=== PATIENT | female | born 1965 | race Caucasian/White ===

== ENCOUNTER 2018-01-10 09:31 | Day surgery (SDC) | END 2018-01-10 14:32 | disposition home or self-care (01) ==

== ENCOUNTER 2018-03-21 21:17 | Inpatient (IN) | END 2018-03-25 20:20 | disposition home or self-care (01) | DRG 493 ==

== ENCOUNTER 2018-12-30 08:22 | Observation (INO) | payer OTHER ==
[~2018-12-30] VITALS: Ht 175.3 cm; Wt 99.3 kg
[2018-12-30] VITALS (53 sets, daily range): BP systolic 100–166; BP diastolic 53–101; PULSE 52–90; RESP 10–48; Ht 175.3 cm; Wt 99.3 kg
--- NOTE | 2018-12-30 07:42 | HPN ---
Date/Time of Note Date/Time of Note DATE: 12/30/18 TIME: 07:41 Interval H&P Admission Note Pt. seen H&P reviewed: No system changes GIGI HUBBARD MD Dec 30, 2018 07:41
[~2018-12-30 08:22] MED LIST: AMLO-147 PO; ASPI-817 PO; ASPI-831 PO; ATOR10TA65 PO; GLIP10TA14 PO; IBUP-1542 ORAL; LEVO500T48 PO; LISI10TA2 ORAL; METF-849 ORAL; MONT10TA24 PO; OMEP40CA6 PO; RANI300T ORAL
--- NOTE | 2018-12-30 10:49 | PREAC ---
Date/Time of Note Date/Time of Note DATE: 12/30/18 TIME: 10:47 Anesthesia Eval and Record Evaluation Time Pre-Procedure Interview DATE: 12/30/18 TIME: 10:47 Age 53 Sex female NPO: 8 hrs Preoperative diagnosis hardware ankle Planned procedure removal of hardware Past Medical History Past Medical History: Includes Cardio: HTN Endo: Diabetes GI: GERD, Obesity Surgery & Anesthesia Issues No known issue Meds Anticoagulation: No Beta Kianna within 24 hr: No Reason Beta Kianna not given: Pt. not on B-Kianna Reported Medications Lisinopril* (Lisinopril*) 10 Mg Tablet, 1 TAB ORAL DAILY 12/30/18 Metformin* (Glucophage*) 500 Mg Tab, 1 TAB ORAL BID 12/30/18 Ranitidine Hcl* (Ranitidine Hcl*) 300 Mg Tablet, 1 TAB ORAL QHS 12/30/18 Omeprazole* (Omeprazole*) 40 Mg Capsule.dr, 40 MG PO DAILY, #30 CAP 12/30/18 Ibuprofen* (Ibuprofen*) 600 Mg Tablet, 1 TAB ORAL Q8H PRN for PAIN LEVEL 4-6 12/30/18 Montelukast Sodium* (Montelukast Sodium*) 10 Mg Tablet, 10 MG PO QHS, #30 TAB 03/21/18 Amlodipine Besylate* (Amlodipine Besylate*) 10 Mg Tablet, 10 MG PO DAILY, #30 TAB 03/21/18 Discontinued Reported Medications Glipizide* (Glipizide*) 10 Mg Tablet, 10 MG PO TID, TAB 03/21/18 Omeprazole* (Omeprazole*) 40 Mg Capsule.dr, 40 MG PO DAILY, #30 CAP 03/21/18 Discontinued Scripts Aspirin (Aspirin) 81 Mg Chew, 81 MG PO BID, #60 TAB Prov:MILLER,TOÑA V. CAKE STRIPPER 03/25/18 Atorvastatin (Atorvastatin) 10 Mg Tablet, 10 MG PO HS, #30 TAB Prov:MILLER,TOÑA V. CAKE STRIPPER 03/25/18 Meds reviewed: Yes Allergies Coded Allergies: cefepime (Verified Allergy, Intermediate, HIVES, RASHES, 03/21/18) vancomycin (Verified Allergy, Intermediate, HIVES, RASHES, ITCHINESS, 03/21/18) morphine (Verified Allergy, Unknown, rash, 03/21/18) Allergies Reviewed: Yes Labs/Studies Labs Reviewed: Reviewed by anesthesiologist test: N/A Pre-procedure Exam Last vitals Vital Signs Date Temp Pulse Resp B/P (MAP) Pulse Ox O2 O2 Flow FiO2 Time Delivery Rate 12/30/18 97.7 70 16 155/70 98 Room Air 09:33 (98) Airway: Adequate mouth opening, Adequate thyromental dist Mallampati: Mallampati IV Teeth: Normal Lung: Normal Heart: Normal ASA Physical Status ASA physical status: 2 Emergency: None Pre-operative Attestations Prior to commencing anesthesia and surgery, the patient was re-evaluated, there was verification of: *The patient's identity *The results of appropriate recent lab work and preoperative vital signs *The above evaluation not changing prior to induction *Anesthetic plan, risk benefits, alternative and complications discussed with patient/family; questions answered; patient/family understands, accepts and wishes to proceed. JORDAN HELLER DO Dec 30, 2018 10:49
[2018-12-30] MEDS ORDERED: OXYCODONE/ACETAMINOPHEN (5/325) TAB PO PRN ×2 (11:00)
[2018-12-30] MEDS ORDERED: HYDROmorphONE 1 MG/5 ML IV SYRINGE IV PRN ×3 (11:00)
[2018-12-30] MEDS ORDERED: hydrALAzine 20 MG INJ IV PRN (11:00)
[2018-12-30] MEDS ORDERED: ONDANSETRON 4 MG INJ IV PRN ×2 (11:00→17:00)
[2018-12-30] MEDS ORDERED: LABETALOL HCL 20MG INJ IV PRN (11:00)
[2018-12-30] MEDS ORDERED: POLYMYXIN/BACITRACIN 1L IRRIG ONE (11:07)
[2018-12-30] MEDS ORDERED: BACITRACIN/POLYMYXIN 28.35 GM OINT TOP ONE (11:07)
[2018-12-30] MEDS ORDERED: PROPOFOL 200 MG INJ ONE (11:25)
[2018-12-30] MEDS ORDERED: LIDOCAINE 2% (SDV) 5 ML INJ ONE (11:25)
[2018-12-30] MEDS ORDERED: MIDAZOLAM 1 MG/ML 2 ML INJ ONE ×2 (11:25→12:05)
[2018-12-30] MEDS ORDERED: ROCURONIUM 50 MG INJ ONE (11:25)
[2018-12-30] MEDS ORDERED: HYDROmorphONE 2 MG/ML SYG ONE (11:27)
[2018-12-30] MEDS ORDERED: morphine 2 MG INJ IV PRN (11:30)
[2018-12-30] MEDS ORDERED: CEFAZOLIN 1 GM INJ ONE (11:31)
[2018-12-30] MEDS ORDERED: ONDANSETRON 4 MG INJ ONE (11:31)
[2018-12-30] MEDS ORDERED: CLINDAMYCIN 600 MG/D5W (PMX) 50 ML IVPB ONE (11:32)
[2018-12-30] MEDS ORDERED: ROPIVACAINE 0.5 % 30 ML VIAL ONE (11:37)
[2018-12-30] MEDS ORDERED: SUGAMMADEX SODIUM 200 MG/2 ML VIAL IV ONE (12:15)
--- NOTE | 2018-12-30 12:35 | PAC ---
Date/Time of Note Date/Time of Note DATE: 12/30/18 TIME: 12:34 Post-Anesthesia Notes Post-Anesthesia Note Last documented vital signs Vital Signs Date Temp Pulse Resp B/P (MAP) Pulse Ox O2 O2 Flow FiO2 Time Delivery Rate 12/30/18 98 94 22 140/65 95 Room Air 1235 Activity: WNL Respiratory function: WNL Cardiovascular function: WNL Mental status: Baseline Pain reasonably controlled: Yes Hydration appropriate: Yes Nausea/Vomiting absent: Yes JORDAN HELLER DO Dec 30, 2018 12:35
--- NOTE | 2018-12-30 12:45 | OPR ---
Date/Time of Note Date/Time of Note DATE: 12/30/18 TIME: 12:40 Operative Report Procedure Date: Dec 30, 2018 Preoperative Diagnosis Left ankle painful hardware Postoperative Diagnosis Left ankle painful hardware Left ankle deltoid rupture Operation/Procedure Performed Left ankle painful hardware removal, deep Left ankle superficial deltoid repair Surgeon Jong Hubbard MD Automatic Serging Machine Operator Jl Felix MD Anesthesia Type: general, other (Saphenous block) Anesthesiologist: JORDAN HELLER DO Tourniquet Time: 24 minutes at 250 mmHg Estimated Blood Loss: minimal Transfusion none Specimen None Grafts/Implants none Complications none Pt Condition Post Procedure: stable Disposition: PACU Indications Patient is a 53-year-old female with ongoing pain over her medial ankle at the site of her hardware. Given her ongoing pain patient indicated for surgical removal of her deep hardware plates and screws. Risk Note: Patient was explained the risks and benefits of surgery and the patient's [place] language including not limited to infection, bleeding, injury to blood vessels, nerves, ligaments or tendons. Risks of anesthesia, deep vein thrombosis and need for reduce future surgery. Patient acknowledged these risk by signing the surgical consent form. Procedure Description Automatic Serging Machine Operator surgeon: An assistant branch manager orthopedic surgeon was needed for this case to assist with positioning of the limb during repair of the injury. Without a qualified orthopedic geriatric nurse assistant in this case the case would be significantly more complex and longer. The patient was met in the preoperative holding area, marked with the correct operative extremity confirmed with both patient and consent. The patient was then brought back in the operative theater, placed supine on operative table, given preoperative antibiotics and preoperative regional block anesthesia. The patient had all bony prominences well padded with a nonsterile tourniquet placed on the operative extremity. The patient was then prepped and draped in the normal sterile fashion. All parties in the room did a timeout and everyone agreed it was the correct patient, and extremity and procedure. Attention was initially turned to the medial malleolus and an incision was made over the medial malleolus with care taken to avoid injury to the neurovascular structures. The hardware was identified and removed without any complication. At the time of the hardware removal a tear in the superficial deltoid was identified irrigated thoroughly and repaired with a 0 Vicryl. All wounds were thoroughly irrigated and closed with initially 2-0 Vicryl, followed by 3-0 Monocryl followed by 4-0 nylon in a vertical mattress fashion. All wounds were dressed with Xeroform, antibiotic ointment, 4 x 4s, 5 ABDs were placed and the patient was placed in a well-padded short leg splint in the neutral position. Tourniquet had been brought down prior to this and hemostasis had been achieved prior to the wound closure. The wounds were irrigated thoroughly prior to closure as well. All sponge and needle counts were correct. Toes were warm and well-perfused in the PACU. JONG HUBBARD MD Dec 30, 2018 12:45
[2018-12-30] MEDS: KETOROLAC 30 MG INJ IV SCH (12:55)
[2018-12-30] MEDS ORDERED: LORAZEPAM 1 MG TAB PO ONE (13:30)
--- NOTE | 2018-12-30 16:42 | HP ---
Date/Time of Note Date/Time of Note DATE: 12/30/18 TIME: 16:42 Assessment/Plan VTE Prophylaxis Pharmacological prophylaxis: other (Aspirin as per orthopedic surgery.) Lines/Catheters IV [facility]ter [facility]from [facility]): Peripheral IV Assessment/Plan Hospital Course 52-year-old female with comorbidities including hypertension, diabetes mellitus type 2, dyslipidemia, and obesity, who had an elective left ankle pain hardware removal along with left ankle superficial deltoid repair with episodes of hypoxia in the postanesthesia care unit, who will be admitted to inpatient setting for further treatment and evaluation. 1. Transient hypoxic episodes. Etiology could be multifactorial including hypoinflation and anxiety. Continue supplemental oxygen as needed. Continue to monitor oxygen levels closely. Obtain a chest x-ray. 2. Left ankle painful hardware. Status post surgical removal with superficial deltoid repair. Continue pain control. Weightbearing as per orthopedic surgery. Anticoagulation as per orthopedic surgery. 3. Hypertension. Resume antihypertensives. 4. Diabetes mellitus type 2. Hold oral antidiabetic agents. Start sliding scale insulin. 5. Dyslipidemia. Obtain a fasting lipid panel level. Plan: The patient will be admitted to inpatient medical surgical floor. The patient will be started on a carbohydrate controlled diet. The patient will be started on DVT prophylaxis . The patient will remain a full code. Activities will be as per orthopedic surgery. The rest of the patient's management will be based on the clinical course, inputs from consultants, and the results of diagnostic studies. Based on the patient's clinical presentation, she most probably requires at least 1 midnight's stay for further management and evaluation of her clinical presentation. The patient was seen in collaboration with Dr. White. Results 24hrs Laboratory Tests Test 12/30/18 09:13 12/30/18 14:11 Bedside Glucose 119 129 HPI/ROS Admit Date/Time Admit Date/Time Hx of Present Illness This is a 53-year-old female with a past medical history of hypertension, diabetes mellitus type 2, dyslipidemia, and obesity. The patient was brought electively to [facility] for removal of hardware from her left medial ankle because of ongoing pain. The patient underwent a left ankle hardware removal, and left ankle superficial deltoid repair on 12/30/2018 without any complications. In the PACU, the patient started complaining of some dyspnea and chest discomfort. The patient was noticed to have episodes of hypoxia (alth ough the patient was not taking deep breaths during the hypoxic episodes). The patient had similar complaints during her PACU stay after prior surgery in February 2018 on her left ankle and as a result, the patient did stay in the hospital for 4 days. At that time, the patient was evaluated by cardiology and was ruled out for any underlying acute coronary syndrome. The patient was complaining of dyspnea. She was complaining of nonspecific chest discomfort. She denied any anxiety, although a single dose of Ativan helped her with improving the oxygen saturation levels. The patient's twelve-lead EKG was showing normal sinus rhythm. After discussing with the surgeon, a clinical decision was made to observe the patient overnight. ROS Constitutional: no complaints Eyes: no complaints ENT: no complaints Respiratory: shortness of breath Cardiovascular: chest pain Gastrointestinal: no complaints Genitourinary: no complaints Musculoskeletal: no complaints Skin: no complaints Neurologic: no complaints Endocrine: no complaints Lymphatic: no complaints Psychological: anxiety Immunologic: no complaints PMH/Family/Social Past Medical History 1. Hypertension. 2. Diabetes mellitus type 2. 3. Dyslipidemia. 4. Obesity. Medications Current Medications Morphine Sulfate (morphine) 2 mg Q1H PRN IV pain; Start 12/30/18 at 11:30 Ketorolac Tromethamine (Toradol) 30 mg ONCE IV Last administered on 12/30/18at 12:55; Admin Dose 30 MG; Start 12/30/18 at 11:30; Stop 01/02/19 at 11:29 Coded Allergies: cefepime (Verified Allergy, Intermediate, HIVES, RASHES, 03/21/18) vancomycin (Verified Allergy, Intermediate, HIVES, RASHES, ITCHINESS, 03/21/18) morphine (Verified Allergy, Unknown, rash, 03/21/18) Past Surgical History 1. Appendectomy. 2. Left ankle surgery. 3. Ovarian cyst removal. Past Surgical Hx: other Family History Significant Family History: hypertension Social History The patient lives at home with her family. Alcohol Use: none Smoking Status: Never smoker Drug Use: none Exam/Review of Systems Vital Signs Vitals Vital Signs Date Temp Pulse Resp B/P (MAP) Pulse Ox O2 O2 Flow FiO2 Time Delivery Rate 12/30/18 58 24 128/67 94 Nasal 15:18 (87) Cannula 12/30/18 3.0 14:22 12/30/18 98.0 14:20 Exam Exam General: Obese, 53 year-old female lying in bed in no apparent distress. HEENT: Normocephalic, atraumatic. Eyes: Anicteric sclerae, conjunctivae clear. ENT: Nasal septum midline, oral mucosa is dry. Neck supple, no JVD noticed. Respiratory: Bilaterally clear breath sounds. No use of accessory muscles of respiration. No adventitious breath sounds. Cardiovascular: S1, S2 heard. Regular rate and rhythm. Abdomen: Soft, nontender, and nondistended. Bowel sounds positive in all 4 quadrants. Genitourinary: Deferred. Extremities: No cyanosis, no clubbing, no edema. Left foot surgical dressing. Neurologic: Cranial nerves II through XII grossly intact. The patient is awake, alert, and oriented. Skin: Normal skin turgor. No skin rashes. ESTRELLA FLETCHER NP Dec 30, 2018 16:42
[2018-12-30] MEDS ORDERED: GLUCAGON 1 MG INJ IM PRN (17:00)
[2018-12-30] MEDS ORDERED: DEXTROSE 50% 50 ML SYRINGE IV PRN ×2 (17:00)
[2018-12-30] MEDS ORDERED: GLUCOSE GEL 15 GRAM TUBE BUCCAL PRN (17:00)
[2018-12-30] MEDS ORDERED: HYDROCODONE/APAP (5/325) TAB PO PRN (17:00)
[2018-12-30] MEDS ORDERED: GLUCOSE GEL 15 GRAM TUBE PO PRN ×2 (17:00)
[2018-12-30] MEDS ORDERED: NACL 0.9% 3 ML SYG IV SCH (17:00)
[2018-12-30] MEDS ORDERED: ACETAMINOPHEN 325 MG TAB PO PRN (17:00)
[2018-12-30] MEDS: INSULIN ASPART [NOVOLOG] 3 ML PEN SC SCH (21:00)
[2018-12-30] MEDS ORDERED: MONTELUKAST 10 MG TAB PO SCH (21:00)
[2018-12-31 00:05] VITALS: BP 114/58; PULSE 61; RESP 18
[2018-12-31 03:57] VITALS: BP 125/64; PULSE 76; RESP 18
[2018-12-31 07:50] VITALS: BP 147/63; PULSE 58; RESP 20
[2018-12-31] MEDS: INSULIN ASPART [NOVOLOG] 3 ML PEN SC SCH ×2 (07:50→11:40)
[2018-12-31] MEDS ORDERED: ASPIRIN (EC) 81 MG TAB PO SCH (09:00)
[2018-12-31] MEDS ORDERED: AMLODIPINE 10 MG TAB PO SCH (09:00)
[2018-12-31] MEDS: KETOROLAC 30 MG INJ IV SCH (11:30)
--- NOTE | 2018-12-31 15:04 | RADRPT ---
Vent Rate: 64 bpm RR Interval: 936 msec SD Interval: 194 msec QRS Duration: 95 msec QT Interval: 438 msec QTC Interval: 453 msec P-R-T [place]: 39 - 57 - -29 degrees Sinus rhythm...normal P axis, V-rate 50- 99 Low voltage, precordial leads...precordial leads <1.0mV Nonspecific T abnormalities, diffuse leads...T <-0.10mV, ant/lat/inf Electronically Signed By: Leoncio Loaiza
--- NOTE | 2018-12-31 15:30 | DS ---
Date/Time of Note Date/Time of Note DATE: 12/31/18 TIME: 15:28 Discharge Summary Admission/Discharge Info Admit Date/Time Dec 30, 2018 at 16:36 Discharge Date/Time Dec 31, 2018 at 13:43 Discharge Diagnosis 52-year-old female with comorbidities including hypertension, diabetes mellitus type 2, dyslipidemia, and obesity, who had an elective left ankle pain hardware removal along with left ankle superficial deltoid repair with episodes of hypoxia in the postanesthesia care unit, who will be admitted to inpatient [facility] for further treatment and evaluation. 1. Transient hypoxic episodes. Etiology could be multifactorial including hypoinflation and anxiety. resolved 2. Left ankle painful hardware. Status post surgical removal with superficial deltoid repair. Continue pain control. Weightbearing as per orthopedic surgery. Anticoagulation as per orthopedic surgery. 3. Hypertension. Resumed antihypertensives. 4. Diabetes mellitus type 2. resume home meds 5. Dyslipidemia. Patient Condition: Stable Hospital Course 50-year-old female who was admitted for observation after she underwent orthopedic surgery for hardware removal due to left ankle pain with superficial deltoid repair. He does have a history of hypertension and dyslipidemia and diabetes mellitus and suffered transient hypoxic episodes postoperatively. She was admitted and observed overnight and she did very well her chest x-ray showed some airspace opacification as well as some atelectasis but patient had no clinical signs of pneumonia. As of today she is doing so much better she is stable on room air she will be discharged in stable condition to continue routine follow-up with the orthopedic surgeon and her primary care doctor as outpatient. . Home Meds Reported Medications Lisinopril* (Lisinopril*) 10 Mg Tablet, 1 TAB ORAL DAILY 12/30/18 Metformin* (Glucophage*) 500 Mg Tab, 1 TAB ORAL BID 12/30/18 Ranitidine Hcl* (Ranitidine Hcl*) 300 Mg Tablet, 1 TAB ORAL QHS 12/30/18 Omeprazole* (Omeprazole*) 40 Mg Capsule.dr, 40 MG PO DAILY, #30 CAP 12/30/18 Ibuprofen* (Ibuprofen*) 600 Mg Tablet, 1 TAB ORAL Q8H PRN for PAIN LEVEL 4-6 12/30/18 Montelukast Sodium* (Montelukast Sodium*) 10 Mg Tablet, 10 MG PO QHS, #30 TAB 03/21/18 Amlodipine Besylate* (Amlodipine Besylate*) 10 Mg Tablet, 10 MG PO DAILY, #30 TAB 03/21/18 Discontinued Reported Medications Glipizide* (Glipizide*) 10 Mg Tablet, 10 MG PO TID, TAB 03/21/18 Omeprazole* (Omeprazole*) 40 Mg Capsule.dr, 40 MG PO DAILY, #30 CAP 03/21/18 Discontinued Scripts Aspirin (Aspirin) 81 Mg Chew, 81 MG PO BID, #60 TAB Prov:TOÑA MILLER V. ENTRY LEVEL WEB DEVELOPER 03/25/18 Atorvastatin (Atorvastatin) 10 Mg Tablet, 10 MG PO HS, #30 TAB Prov:TOÑA MILLER V. ENTRY LEVEL WEB DEVELOPER 03/25/18 Follow-up Plan See hospital course . Primary Care Provider Not On Staff Doctor Time spent on discharge: > 30 minutes Pending Labs Laboratory Tests Test 12/30/18 21:44 12/31/18 04:15 12/31/18 08:42 12/31/18 08:47 Bedside 132 93 Glucose mg/dL (70-220) mg/dL (70-220) White Blood 7.1 Count 10^3/ul (4.8-1 0.8) Red Blood 4.25 Count 10^6/ul (4.20- 5.40) Hemoglobin 12.4 g/dl (12.0-16. 0) Hematocrit 38.8 % (37.0-47.0) Mean 91.3 Corpuscular fl (82.0-101.0 Volume ) Mean 29.2 Corpuscular pg (29.0-33.0) Hemoglobin Mean 32.0 Corpuscular g/dl (32.0-37. Hemoglobin Conc 0) ent Red Cell 13.1 Distribution % (11.5-14.5) Width Platelet Count 193 10^3/UL (140-4 15) Mean Platelet 9.9 Volume fl (7.4-10.4) Immature 0.400 Granulocytes % % (0.001-0.429 ) Neutrophils % 58.5 % (39.0-77.0) Lymphocytes % 32.6 % (15.0-51.0) Monocytes % 6.7 % (0.0-11.0) Eosinophils % 1.4 % (0.0-7.0) Basophils % 0.4 % (0.0-2.0) Nucleated Red 0.0 Blood Cells % /100WBC (0.0-0 .0) Immature 0.030 Granulocytes # 10^3/ul (0.0-0 .031) Neutrophils # 4.2 10^3/ul (1.6-7 .5) Lymphocytes # 2.3 10^3/ul (0.8-2 .9) Monocytes # 0.5 10^3/ul (0.3-0 .9) Eosinophils # 0.1 10^3/ul (0.0-0 .5) Basophils # 0.0 10^3/ul (0.0-0 .1) Nucleated Red 0.0 Blood Cells # 10^3/ul (0.0-0 .0) Sodium Level 144 mmol/L (135-14 4) Potassium 3.9 Level mmol/L (3.5-5. 1) Chloride Level 108 mmol/L (97-110 ) Carbon Dioxide 29 Level mmol/L (21-31) Anion Gap 7 (5-13) Blood Urea 12 Nitrogen mg/dl (7-20) Creatinine 0.61 mg/dl (0.44-1. 00) Est Glomerular > 60 Filtrat mL/min (>60) Rate mL/min Glucose Level 88 mg/dl (70-220) Hemoglobin A1c 6.4 % (0-5.9) Calcium Level 9.5 mg/dl (8.4-10. 2) Magnesium 2.1 Level mg/dl (1.7-2.5 ) Triglycerides 55 Level mg/dl (0-149) Cholesterol 177 Level mg/dl (100-200 ) LDL 109 mg/dl Cholesterol, Calculated HDL 57 Cholesterol mg/dl (37-92) Cholesterol/HDL 3.1 RATIO Ratio Lab Scanned REFERENCE Report LAB [id number] Test 12/31/18 12:42 Bedside 123 Glucose mg/dL (70-220) VENU LUNSFORD Dec 31, 2018 15:30
== END 2018-12-31 13:43 | disposition home health service (06) ==
LOC: SDS 08:22 → REC 16:36 → MS1 21:15
PROVIDERS: ADMIT Internal Medicine; ATTEND Internal Medicine
DX: T84.84XA Pain due to internal orthopedic prosthetic devices, implants and grafts, initial encounter (principal); S93.422A Sprain of deltoid ligament of left ankle, initial encounter; R09.02 Hypoxemia; I10 Essential (primary) hypertension; E11.9 Type 2 diabetes mellitus without complications; E78.5 Hyperlipidemia, unspecified; E66.9 Obesity, unspecified; Z68.32 Body mass index [BMI] 32.0-32.9, adult; Y83.8 Other surgical procedures as the cause of abnormal reaction of the patient, or of later complication, without mention of misadventure at the time of the procedure
CPT/HCPCS: 20680; 27695; 71045; 73610; 80048; 80061; 82306; 82962; 83036; 83735; 84703; 85025; 88300; 93005; J1170; J1885; J2250; J2405; J3010; Z7500; Z7512; Z7610; 99217; G0378; J0690; J1815; J2795